=== PATIENT | female | born 1975 | race Caucasian/White ===

== ENCOUNTER 2016-07-15 05:35 | Day surgery (SDC) | payer OTHER ==
[2016-07-12 13:52] LABS: BILIRUBIN,URINE NEGATIVE (NEGATIVE); CLARITY/URINE CLEAR (CLEAR); COLOR,URINE YELLOW (YELLOW); GLUCOSE,URINE NEGATIVE (NEGATIVE); KETONES,URINE NEGATIVE (NEGATIVE); LEUKOCYTE ESTERASE ,URINE 2+ (NEGATIVE); NITRITE, URINE NEGATIVE (NEGATIVE); PROTEIN URINE NEGATIVE (NEGATIVE); UROBILINOGEN,URINE 0.2 (0.2-1.0)
[2016-07-12 13:58] LABS: BLOOD, URINE TRACE (NEGATIVE)
[2016-07-12 14:01] LABS: HCG,QUAL RESULT NEGATIVE (NEGATIVE)
[2016-07-12 14:04] LABS: RBC,URINE 0-3 /HPF (0-3)
[2016-07-12 14:05] LABS: BACTERIA,URINE FEW /HPF (None Seen)
[2016-07-12 14:06] LABS: MUCUS,URINE 1+ /LPF (None Seen)
[2016-07-12 14:09] LABS: BASOPHILS % (AUTO) 0.4 % (0.0-2.0); EOSINOPHILS # (AUTO) 0.1 K/uL (0.0-0.4); HEMOGLOBIN 13.9 g/dL (12.0-16.0); LYMPHOCYTES # (AUTO) 1.8 K/uL (1.0-5.5); LYMPHOCYTES % (AUTO) 27.3 % (20.5-51.5); MEAN CORPUSCULAR HEMOGLOBIN 28 pg (27-31); MEAN CORPUSCULAR HGB CONC 33 % (32-36); MEAN CORPUSCULAR VOLUME 84 fL (79.0-98.0); MONOCYTES # (AUTO) 0.3 K/uL (0.0-1.0); MONOCYTES % (AUTO) 5.3 % (1.7-9.3); NEUTROPHILS # (AUTO) 4.3 K/uL (1.8-7.7); PLATELET COUNT (AUTO) 305 K/uL (130-430); RED BLOOD CELL COUNT(AUTO) 5.02 MIL/uL (4.2-6.2); WHITE BLOOD COUNT (AUTO) 6.5 K/uL (4.8-10.8)
[2016-07-12 15:04] LABS: CALCIUM 9.2 mg/dL (8.4-11.0); CREATININE 0.81 mg/dL (0.55-1.30); POTASSIUM 4.6 mmol/L (3.5-5.1)
[~2016-07-15] VITALS: Ht 182.9 cm; Wt 87.1 kg
[~2016-07-15 05:35] MED LIST: BUPIVACAINE /EPINEPHRINE/PF 0.5% 30 ML VIAL INJ ONE; CLINDAMYCIN PHOSPHATE 300 MG/2 ML VIAL IV ONE; DEXAMETHASONE SOD PHOSPHATE 4 MG/ML VIAL IVP ONE; KETAMINE HCL 500 MG/10 ML VIAL IVP ONE; KETOROLAC TROMETHAMINE 30 MG VIAL IVP ONE; LR 1,000 ML IV.SOLN IV ONE; METOCLOPRAMIDE HCL 10 MG/2 ML VIAL IVP ONE; MIDAZOLAM HCL 5 MG/5 ML VIAL IVP ONE; NS 1000 ML BAG IV ONE; NS IRRIG SOLN 1000 ML IR ONE; ONDANSETRON HCL 4 MG/2 ML VIAL IVP ONE; PROPOFOL 200MG/ 20ML VIAL (DIPRIVAN) IV ONE; ROCURONIUM BROMIDE 10 MG/ML (ZEMURON) IV ONE; SEVOFLURANE 15 MIN GAS INH ONE; fentaNYL CITRATE 250 MCG/5 ML AMP IV ONE; fentaNYL CITRATE/PF 100 MCG/2 ML AMP IVP ONE
[2016-07-15] MEDS ORDERED: CLINDAMYCIN 600 mg/50mL D5W 50 ML IV ONE (07:00)
[2016-07-15] MEDS ORDERED: LR 1,000 ML IV SCH (08:55)
[2016-07-15] MEDS ORDERED: MEPERIDINE HCL/PF 25 MG/ML DISP.SYRIN IVP PRN (09:00)
[2016-07-15] MEDS ORDERED: HYDROmorphone 2 MG/ML VIAL IVP PRN ×2 (09:00)
[2016-07-15] MEDS ORDERED: HYDROmorphone 1 MG INJ. 1 MG/ML AMPUL IVP PRN (09:00)
[2016-07-15] MEDS ORDERED: KETAMINE HCL 500 MG/10 ML VIAL ONE (09:18)
[2016-07-15] MEDS ORDERED: IBUPROFEN 800 MG TABLET PO PRN ×3 (10:00)
[2016-07-15] MEDS ORDERED: ONDANSETRON HCL 4 MG/2 ML VIAL IVP PRN (10:00)
[2016-07-15] MEDS ORDERED: OXYCODONE/ACETAMINOPHEN 5-325 TABLET PO PRN ×6 (10:00)
[2016-07-15 10:40] VITALS: BP_SYST 118
[2016-07-15] MEDS ORDERED: OXYCODONE/ACETAMINOPHEN 5-325 TABLET ONE (14:46)
== END 2016-07-15 15:20 | disposition home or self-care (01) ==
LOC: SMU 05:35 → SDS 05:35
PROVIDERS: ATTEND Obstetrics & Gynecology
DX: D25.2 Subserosal leiomyoma of uterus (principal); D25.1 Intramural leiomyoma of uterus; G43.829 Menstrual migraine, not intractable, without status migrainosus; N39.0 Urinary tract infection, site not specified; F41.9 Anxiety disorder, unspecified; E66.01 Morbid (severe) obesity due to excess calories
CPT/HCPCS: 36415; 58571; 80048; 81000; 84703; 85025; 86886; 86900; 86901; 87086; 88307; J3490; J7120; E0190; J1100; J1885; J2250; J2405; J2704; J2765; J3010; J7030